=== PATIENT | female | born 1955 | race Caucasian/White ===

== ENCOUNTER → 2017-07-26 | Outpatient (CLI) | payer BC ==
[~2017-07-26] MED LIST: ACIPHEX20 MG PO; ALAWAY EYE DROPS; ALLEGRA 60MG TA60 MG PO; ASTELIN NASAL S34 ML NS; BEPREVE15 MG/ML OU; DAZIDOX10 MG PO; DEPO-TESTOS100 MG/ML PO; FISH OIL1 IU PO; INDOMETHACIN SR75 MG PO; LEVOTHYROXINE0.05 M1 PO; LIBRAX CAPSULE1 CAP PO; LUNESTA3 MG PO; LYRICA 150MG C150 MG PO; MIRALAX PA17 GM/Dose PO; MULTIPLE VITAMI1 TAB PO; MVI; NORCO 325 MG-51 TAB PO; PERCOCET 325 MG1 TAB PO; PHENERGAN 25 TA25 MG PO; PHENERGAN25 MG RC; PREMARIN 0.60.625 MG PO; PROVENTIL0.09 MG/A1 IH; PROVIGIL 100MG100 MG PO; REQUIP 1MG T1 MG/TAB PO; SINGULAIR10 MG PO; SYSTANE LUBRICAN5 ML OP; TRAMADOL; ULTRAM ER300 MG PO; ULTRAM100 MG PO; VENTOLIN0.09 MG IH; VERAMYST SPRAY; VITAMIN D1000 IU PO; ZOCOR40 MG PO; ZOFRAN4 M1 PO; ZOMIG 5MG TAB5 MG PO; [UNRECOGNIZED DRUG - OTHER]
== END ==
LOC: MC.RAD 12:56
DX: Z12.31 Encounter for screening mammogram for malignant neoplasm of breast (principal); Z88.8 Allergy status to other drugs, medicaments and biological substances; Z88.1 Allergy status to other antibiotic agents; Z91.040 Latex allergy status

== ENCOUNTER 2017-08-20 22:34 | Emergency (ER) | payer BC ==
[~2017-08-20] VITALS: Ht 157.5 cm; Wt 77.3 kg
[2017-08-20 22:37] VITALS: BP 117/56; TEMP 100.1
[2017-08-21] MEDS ORDERED: TAMIFLU 75MG75 MG PO (01:15)
[2017-08-21] MEDS ORDERED: PREDNISONE20 MG PO (01:15)
[2017-08-21 01:38] VITALS: PULSE 93
== END 2017-08-21 03:31 | disposition home or self-care (01) ==
LOC: COL.ER 22:34
DX: J45.909 Unspecified asthma, uncomplicated (principal); J10.1 Influenza due to other identified influenza virus with other respiratory manifestations
CPT/HCPCS: J7512

== ENCOUNTER → 2018-06-17 | Outpatient (REF) ==
[~2018-06-17] MED LIST changes: +PREDNISONE20 MG PO; +TAMIFLU 75MG75 MG PO
== END ==
LOC: ZLAB.WCH 10:49
DX: Z01.89 Encounter for other specified special examinations (principal)

== ENCOUNTER → 2018-09-29 | Outpatient (CLI) | payer MEDICARE, BC | LOC: MC.RAD 11:13 | DX: Z12.31 Encounter for screening mammogram for malignant neoplasm of breast (principal); M81.0 Age-related osteoporosis without current pathological fracture; R06.02 Shortness of breath ==

== ENCOUNTER → 2018-11-14 | Outpatient (CLI) | payer MEDICARE, BC | LOC: ZCOL.LAB 14:48 | DX: Z22.322 Carrier or suspected carrier of Methicillin resistant Staphylococcus aureus (principal) ==

== ENCOUNTER → 2018-11-29 | Outpatient (CLI) | payer MEDICARE, BC | LOC: ZCOL.LAB 14:19 | DX: Z22.322 Carrier or suspected carrier of Methicillin resistant Staphylococcus aureus (principal) ==

== ENCOUNTER 2021-04-17 11:30 | Outpatient (RCR) | payer MEDICARE, BC | END 2021-06-18 | disposition home or self-care (01) | LOC: MKS.ESL.PT | DX: G63 Polyneuropathy in diseases classified elsewhere (principal) ==

== ENCOUNTER 2021-06-18 11:30 | Outpatient (RCR) | payer SELFPAY | END 2021-06-22 | disposition home or self-care (01) | LOC: MKS.ESL.PT | DX: G63 Polyneuropathy in diseases classified elsewhere (principal) ==

== ENCOUNTER 2021-07-16 11:30 | Outpatient (RCR) | payer SELFPAY | END 2021-07-17 | disposition home or self-care (01) | LOC: MKS.ESL.PT | DX: G63 Polyneuropathy in diseases classified elsewhere (principal) ==

== ENCOUNTER → 2022-01-14 | Outpatient (RCR) | payer SELFPAY | END | disposition still patient (30) | LOC: MKS.ESL.PT | DX: G62.9 Polyneuropathy, unspecified (principal) ==

== ENCOUNTER 2022-02-11 13:00 | Outpatient (RCR) | payer SELFPAY | END 2022-02-14 | disposition home or self-care (01) | LOC: MKS.ESL.PT | DX: G62.9 Polyneuropathy, unspecified (principal) ==

== ENCOUNTER → 2022-03-17 | Outpatient (RCR) | payer SELFPAY | END | disposition home or self-care (01) | LOC: MKS.ESL.PT | DX: G62.9 Polyneuropathy, unspecified (principal) ==